=== PATIENT | female | born 1970 | race Caucasian/White ===

== ENCOUNTER → 2024-12-30 11:24 | Outpatient (REF) | payer MEDICARE, OTHER, SELFPAY | LOC: HWRAD 11:24 | PROVIDERS: ATTENDING PHYSICIAN Family Medicine | DX: R22.2 Localized swelling, mass and lump, trunk (principal) | CPT/HCPCS: 76604 ==

== ENCOUNTER 2025-03-09 21:30 | Observation (INO) | payer MEDICARE, OTHER, SELFPAY ==
[2025-03-09] VITALS (8 sets, daily range): BP systolic 110–127; BP diastolic 51–86; BMI 30.7
[2025-03-09 12:31] LABS: Hematocrit 37.1 % (37.0-47.0); Hemoglobin 12.1 g/dL (12.0-16.0); Mean Corp Hgb Conc. 32.6 g/dL (33.0-37.0); Mean Corpuscular Volume 81.5 fL (81.0-99.0); Nucleated Red Blood Cells % 0 %; Platelet Count 212 10^3/uL (130-400); Red Cell Dist. Width 13.4 % (11.5-14.5)
[2025-03-09 12:55] LABS: ALT (SGPT) 33 U/L (0-35); AST (SGOT) 31 U/L (14-36); Albumin 4.9 g/dl (3.5-5.0); Alkaline Phosphatase 74 U/L (38-126); Blood Urea Nitrogen 24 mg/dl (7-17); Calcium 9.7 mg/dl (8.4-10.2); Carbon Dioxide 21 mmol/L (22-30); Chloride 109 mmol/L (98-107); Glucose 107 mg/dl (70-99); Potassium 4.5 mmol/L (3.5-5.1); Sodium 140 mmol/L (135-145); Total Protein 7.9 g/dl (6.3-8.2); eGFR > 60.00
--- NOTE | 2025-03-09 17:01 | ED.GENMED ---
History of Present Illness
General
Chief Complaint: Headache
Source: patient and family
Exam Limitations: none
Time Seen by Provider: 03/09/25 16:41
History of Present Illness
History of Present Illness:
54-year-old female 4 to 5 days of double vision. Noted the left eye is not moving correctly. Has slowly progressed over this period of time. Some headache mildly behind the left eye associated with this. She feels this is mostly from the double
vision. No other neurologic symptoms. History of TBI. Had some eye issues shortly after the TBI requiring eye physical therapy but has been well for years. She is on disability for TBI however.
Past History
Past History
ED Past Medical History: GERD and Other (Migraines. TBI)
ED Past Surgical History: Gynecological
Social History
Tobacco: Non-smoker
Personal:
Living: with family
Review of Systems
Review of Systems
All Other Systems: Not applicable
Neurological: Denies dizzy, weakness or numbness
Phy Exam
Physical Exam
Physical Exam:
GENERAL: Alert and oriented in no apparent distress
EYE: Orbits normal.
NECK: Supple, no carotid bruit
ENT: Pharynx without erythema
CARDIAC: Regular rate and rhythm without any obvious murmurs. Sternotomy scar
LUNGS: Clear breath sounds,normal
ABDOMEN: Soft, without focal tenderness or distention
NEUROLOGICAL: Alert and oriented , speech normal. No facial droop. Gaxasc-qz-djrw normal. Good refrigeration insulator. Lower extremity strength normal. Extraocular muscles:
SKIN: Warm and dry, no rash or lesion, no discoloration, skin intact.
MUSCULOSKELETAL: No edema,no deformity.Good color
PSYCH: Normal and appropriate interaction.
Course
Orders/Labs/Results
Orders:
Orders
03/09/25 12:20
CMP [Comprehensive Metabolic Panel] Urgent
Complete Blood Count/With Diff Urgent
Erythrocyte Sed Rate Urgent
Lyme Progressive Urgent
03/09/25 17:00
CT Head & Neck Angio W/wo IV Urgent
Comment:
Reason For Exam: double vision/heaton
03/09/25 17:04
IV Insert/Care/Rem.- Treatment PRN
03/09/25 17:05
0.9% Sodium Chloride 500 ml [Nss] 500 ml IV BOLUS
03/09/25 17:09
Add On- LAB Urgent
Tests Added?: lyme progressive,esr
03/09/25 18:22
Acetaminophen [Tylenol] 650 mg PO NOW STA
Abnormal Lab Results
03/09/25
12:20
MCH 26.6 L pg
(27.0-31.0)
MCHC 32.6 L g/dL
(33.0-37.0)
MPV 10.6 H fL
(7.4-10.4)
Absolute Monos (auto) 0.9 H 10^3/uL
(0.1-0.6)
Chloride 109 H mmol/L
(98-107)
Carbon Dioxide 21 L mmol/L
(22-30)
BUN 24 H mg/dl
(7-17)
Glucose 107 H mg/dl
(70-99)
03/09/25 12:20
03/09/25 12:20
Vital Signs
Initial and Last Documented VS:
Initial Vital Signs
Temp Pulse Resp BP Pulse Ox
98.2 F 66 19 125/86 96
03/09/25 12:12 03/09/25 12:12 03/09/25 12:12 03/09/25 12:12 03/09/25 12:12
Last Documented Vital Signs
Temp Pulse Resp BP Pulse Ox
98.2 F 67 23 115/59 97
03/09/25 12:12 03/09/25 20:02 03/09/25 20:02 03/09/25 20:02 03/09/25 20:02
*Radiology
Radiology exam reviewed: radiology read reviewed (No acute vascular issue. Old cerebellar infarct. Thyroid nodule)
*Pulse Oximetry
SaO2: 96
Oxygen Mode of Delivery: Room air
Patient hypoxic: no
*Critical Care Note
Total Time (30-74mins, 75-104mins- exclusive of procedures): Not Applicable
Update Note
Update Note:
No acute vascular issue. However patient has an old cerebellar infarct on CT. This may or may not be an issue related to her previous TBI although patient and family do not know that she has had this based on her history. Given the double vision,
cerebellar infarct, patient warrants a more acute workup in the hospital.
ED Attending Note
-
Portions of this chart may have been created with voice recognition software.� Occasional wrong word or��sound alike� substitutions may have occurred due to the inherent limitations of voice recognition software.
Discharge Plan
Departure
Patient Disposition: Admit
Date of Disposition: 03/09/25
Time of Disposition: 19:11
Presentation/result/management discussed w/ accepting MD/DO: Hospitalist
Discharge Problem:
Double vision/cranial nerve palsy, Remote cerebellar infarct
Prescriptions:
No Action
clindamycin HCl 300 MG capsule
300 mg PO QID Qty: 28 0RF
hydrocodone-acetaminophen 1 TABLET tablet
1 tab PO Q4HPRN PRN (Reason: Pain) Qty: 12 0RF
Referrals:
Candelario Laws DO [Family Provider, Family Practice]
Interventions
Interventions:
*Risk Screen - Suicide Last Done: 03/09/25 12:12
*General Assessment Last Done: 03/09/25 12:12
*Neglect/Abuse Screening Last Done: 03/09/25 12:12
*ED- Fall Risk Assessment Last Done: 03/09/25 17:41
*ED COVID-19 Vaccine History Last Done: 03/09/25 17:41
ED- Neurological Assessment Last Done: 03/09/25 18:23
Discharge Date and Time
Print Language: FRENCH
[2025-03-09] MEDS: NSS 500 IV (18:15)
[2025-03-09] MEDS: TYLENOL 650 MG PO (18:31)
--- NOTE | 2025-03-09 20:01 | HPS.HSE ---
Addendum entered and electronically signed by Brian Browning DO 03/09/25 21:43:
Patient seen and examined independently. Agree with findings and plan as set forth by GUCCI Torres.
Patient is a 54y F with PMH significant for TBI who presents to ED complaining of double vision for about one week. Patient noted double vision that started while driving last week. It has persisted since - at times better / worse but never
fully resolving. She has L sided headache as well. No N/V. No numbness / tingling. No speech abnormality or focal weakness. Patient had TBI from fall about 2 years ago and is on disability as a result. No prior h/o vision changes / double
vision.
Ass:
Diplopia
h/o TBI
ASCVD
Migraine Headaches
GERD
Anxiety / Depression
Plan:
Observe overnight for further evaluation and treatment.
Evident ADDuction of L eye on exam while at rest.
Lateral movement / ABduction remains intact however.
CT with possible old R cerebellar CVA and otherwise unremarkable.
Neurology evaluation for additional recommendations.
Follow for any new / worsening symptoms.
Original Note:
Family Physician
-
Family Physician: Candelario Laws
Chief Complaint
-
double vision
History of Present Illness
Patient is a 54-year-old female with past medical history significant for depression/anxiety, hyperlipidemia, GERD, CAD, nerve pain and Hx mitral valve prolapse who presented to [facility] ED for evaluation of double vision for past 4-5 days. Patient
reports that last she noticed that she started with double vision and ten noticed that left eye had esotropia. She does report a mild consistent headache for last several days to left side behind the eye, which she reports is different than
headaches she normally experiences. Denies any dizziness or lightheadedness but admits to some unsteadiness on feet. She reports if she closes one eye the double vision is not present. It is only present when using both eyes. Denies fever, chills,
numbness, nausea or vomiting.
Medical History
Past Medical History
Past Medical History: Reports Other
Additional Past Medical History:
depression/anxiety
hyperlipidemia
GERD
CAD
nerve pain
migraines
Hx mitral valve prolapse
Hx TBI
Past Surgical History: Reports Other
Additional Past Surgical History:
Hysterectomy 07/2016
Mitral Valve Repair 03/2023
Sternotomy and thoracotomy 2022
Social History
Tobacco: Non-smoker
Alcohol: None
Drug: None
Personal:
Living: With Family
Employment: Disabled
Family History
Family History: Other (Father: Lewy Body Dementia)
Allergies / Home Medications
Allergies reflects when Allergies were last updated in [facility].
Home Medications with original date entered in [facility]
Allergy/Medication List:
Allergies
Allergy/AdvReac Type Severity Reaction Status Date / Time
Penicillins Allergy Unknown Verified 06/10/17 11:55
vancomycin Allergy Unknown Verified 06/10/17 11:55
Home Medications
aspirin 81 mg tablet,delayed release 81 mg PO DAILY 03/09/25
bupropion HCl 300 mg 24 hr tablet, extended release 300 mg PO DAILY 03/09/25
cetirizine 10 mg tablet (Zyrtec) 10 mg PO DAILY 03/09/25
escitalopram oxalate 10 mg tablet 10 mg PO HS 03/09/25
esomeprazole magnesium 20 mg capsule,delayed release 20 mg PO DAILY 03/09/25
propranolol 20 mg tablet 20 mg PO BID 03/09/25
rosuvastatin 5 mg tablet 5 mg PO HS 03/09/25
Review of Systems
-
History Source: Patient
Constitutional: Reports No Symptoms
EENT: Reports Other (binocular diplopia, left eye esotropia)
Respiratory: Reports No Symptoms
Cardiac: Reports No Symptoms
Abdomen/GI: Reports No Symptoms
: Reports No Symptoms
Musculoskeletal: Reports No Symptoms
Skin: Reports No Symptoms
Neurological: Reports No Symptoms
Endocrine: Reports No Symptoms
Hematologic/Lymphatic: Reports No Symptoms
Psych: Reports No Symptoms
Physical Exam
Vital Signs
Vital Signs
Temp Pulse Resp BP Pulse Ox
98.2 F 61 19 127/69 94
03/09/25 12:12 03/09/25 19:15 03/09/25 19:15 03/09/25 19:00 03/09/25 19:15
Physical Exam
General: Well Developed, Well Nourished, No Apparent Distress, Comfortable, Conversant and Obese
HEENT: NormoCephalic, Moist mucous membranes, Atraumatic, PERRLA and Nellie Conjunctivae
Respiratory: Clear and Non Labored Respirations
Cardiac: S1/S2 and Regular Rhythm; No Murmur, Rub or Gallop
GI: Soft, Non Tender, Non Distended and Normal Bowel Sounds; No Organomegaly
Rectal: Deferred by Provider
Musculoskeletal: No Clubbing, No Cyanosis and No Edema
Skin: Warm and IV/Catheter Site
Neuro: Awake, AO x 3, No Motor Deficits, Nonfocal/grossly intact and No Sensory Deficits; No Facial Droop
Psych: Calm and Intact Judgment/Insight
Laboratory Results
-
03/09/25 12:20
03/09/25 12:20
Laboratory Results
Total Bilirubin 0.8 mg/dl (0.2-1.3) 03/09/25 12:20
AST 31 U/L (14-36) 03/09/25 12:20
ALT 33 U/L (0-35) 03/09/25 12:20
Alkaline Phosphatase 74 U/L (38-126) 03/09/25 12:20
Data Reviewed
-
CT Scan: Report Reviewed by me (King CTA: No acute intracranial abnormality. 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 No CTA evidence for high-grade stenosis or occlusion of the [place] or the arterial vasculature of the neck.
Thyroid gland nodularity for which a follow-up thyroid ultrasound is recommended on)
Lab Data: Labs Reviewed by me
Impression/Plan
-
IMPRESSION/PLAN:
#double vision
Head/Neck CTA: No acute intracranial abnormality.
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
No CTA evidence for high-grade stenosis or occlusion of the [place] or the arterial vasculature of the neck.
Thyroid gland nodularity for which a follow-up thyroid ultrasound is recommended on a routine outpatient basis.
- Admit to med/surg
- Consult Neurology
- check thiamine
#depression/anxiety
- continue escitalopram and Wellbutrin
#hyperlipidemia
- continue rosuvastatin
#GERD
- continue esomeprazole
#migraines
- continue Inderal
#CAD
- continue aspirin
#Hx mitral valve prolapse
s/p mitral valve repair
#Hx TBI
#nerve pain
Code status: full code
DVT prophylaxis: Lovenox
[2025-03-10] MEDS: LEXAPRO 10 MG PO (00:03)
[2025-03-10] MEDS: INDERAL 20 MG PO ×2 (00:03→09:45)
[2025-03-10] MEDS: CRESTOR 5 MG PO (00:03)
[2025-03-10 00:04] VITALS: BP 121/68
[2025-03-10] MEDS: PROTONIX 40 MG PO (08:11)
[2025-03-10] MEDS: ASPIR LOW (ENTERIC COATED) 81 MG PO (08:11)
[2025-03-10] MEDS: VITAMIN B1 100 MG PO (08:11)
[2025-03-10] MEDS: ZYRTEC 10 MG PO (08:12)
[2025-03-10 08:15] VITALS: BP 102/66
--- NOTE | 2025-03-10 08:19 | CON.NEURO ---
Addendum entered and electronically signed by Kamron Rios MD 03/10/25 10:29:
Studies reviewed.
I have personally examined the patient. I reviewed and agree with the ELECTRON[employer] DETAIL DRAFTSPERSON's Note.
My addenda:
Awake, alert, interactive. No acute distress.
Speech intact.
Follows 2-step requests w/o difficulty. No tremor.
Extra-ocular movements grossly intact.
Facial movements full and symmetric. Hearing intact to normal conversational volume.
Normal UE movements bilaterally.
Neck: full ROM.
Chest: no dyspnea
Heart: no JVD
Ext: (-) Clubbing, (-) Cyanosis, (-) Edema
IMPRESSIONS/RECOMMENDATIONS:
Abrupt onset of diplopia with chronic daily headache in a patient with self-reported traumatic brain injury
Most likely due to convergence breakdown of prior esotropia. Differential diagnosis includes acute ischemic stroke, demyelinating disease.
Check MRI of brain
Patient should meet with usual neuro-sugar refiner for ocular retraining
Check blood work for potential metabolic causes producing symptoms
Continue aspirin due to prior history of CABG as well as right lacunar cerebellar lesion which is chronic
As outpatient, patient will need additional therapies to remediate chronic daily headache
Occupational therapy
D/W patient / family
All questions answered.
Will continue to follow pending results.
Original Note:
Documented by User: Shania Rain NP 03/10/25 09:50
Neuro Assessment/Plan
Assessment
Patient is a 54-year-old right-handed female with past medical history significant for depression/anxiety, hyperlipidemia, GERD, CAD, nerve pain, TBI, mitral valve prolapse who presented to [facility] ED on 03/09/2025 for evaluation of double vision for
past 4-5 days.
Head and neck CTA:
No acute intracranial abnormality.
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
No CTA evidence for high-grade stenosis or occlusion of the [place] or the arterial vasculature of the neck.
Thyroid gland nodularity for which a follow-up thyroid ultrasound is recommended on a routine outpatient basis.
Brain MRI: pending
Plan
Impressions: abrupt onset of diplopia and headache most likely due to reoccurrence of her esotropia vs CVA
-follow up with neuro sugar refiner outpatient
-obtain brain MRI to rule out new stroke
-continue aspirin 81 mg daily
-check LDL with goal <70, continue statin therapy
-OT evaluation
All questions encouraged and answered, plan of care discussed with Dr. Rios, patient and family
Consultation
Order
Date of Consultation: 03/10/25
Requesting Provider: hospitalist
Reason for Consult: binocular diplopia and headache
Subjective/Objective
Subjective Data
Date of Service: March 10, 2025
Patient is a 54-year-old right-handed female with past medical history significant for depression/anxiety, hyperlipidemia, GERD, CAD, nerve pain, TBI, mitral valve prolapse who presented to [facility] ED on 03/09/2025 for evaluation of double vision for
past 4-5 days. Patient reports that last she noticed that she started with double vision and noticed that left eye had esotropia around 10-11am [facility]. She does report a mild consistent headache for last
several days to left side behind the eye, which she reports is different than headaches she normally experiences. Has more of a feeling of numbness and weakness. Pain is 2/10 which has been since her accident. Stress and eye strain makes it worse,
rest improves her headaches. She states she has headaches intermittently once or twice a day every day and takes Inderal for her migraines as preventative therapy. She used to see a neurologist for her migraines, Dr. Jason Blancas but he retired and
has not seen a neurologist since. Denies any dizziness or lightheadedness. She reports if she closes her left eye the double vision is not present. It is only present when using both eyes. Denies fever, chills, numbness, nausea or vomiting. Denies
weakness, numbness or tingling in upper or lower extremities. Denies issues with chewing or swallowing. Denies issues with speech. Denies issues with bowel/bladder. Denies recent trauma. Of note, she has been taking aspirin 81 mg prior to admission
for his cardiac surgery history. Has history of TBI and has had vestibular therapy, vision therapy and speech therapy in the past which seemed to have improved her symptoms.
Objective Data
Vital Signs
Temp Pulse Resp BP Pulse Ox
98.4 F 61 18 102/66 99
03/10/25 08:15 03/10/25 08:15 03/10/25 08:15 03/10/25 08:15 03/10/25 00:04
Lab Results
03/09/25 12:20
03/09/25 12:20
Sodium 140 mmol/L (135-145) 03/09/25 12:20
Potassium 4.5 mmol/L (3.5-5.1) 03/09/25 12:20
BUN 24 mg/dl (7-17) H 03/09/25 12:20
Glucose 107 mg/dl (70-99) H 03/09/25 12:20
Calcium 9.7 mg/dl (8.4-10.2) 03/09/25 12:20
Patient Allergies
Penicillins Allergy (Verified 06/10/17 11:55)
Unknown
vancomycin Allergy (Verified 06/10/17 11:55)
Unknown
CVA Assessment
Onset of Stroke Symptoms
Onset of symptoms known: Yes
Date of onset of symptoms: 03/05/25
Time of onset of symptoms: 10:00
Time pt last seen normal is known: Yes
Date last time pt seen normal: 03/05/25
Time last time pt seen normal: 10:00
NIH Stroke Score
Level of Consciousness: 0 - Alert
LOC Questions: 0-Answers both correctly
LOC Commands: 0-Performs both correctly
Best Horizontal Gaze: 1-Partial gaze palsy
Visual Hardin: 0=Normal, no visual loss
Facial Palsy: 0=Normal, symmetrical
Motor - Right Arm: 0=No drift 10 seconds
Motor - Left Arm: 0=No drift 10 seconds
Motor - Right Le-No drift 5 seconds
Motor - Left Le-No drift 5 seconds
Limb Ataxia: 0-Absent
Sensation: 0-Normal
Best Language: 0-No aphasia
Dysarthria: 0-Normal
Extinction and Inattention: 0-No abnormality
NIH Total Score:: 1
Tenecteplase Contraindications
Inclusion and Exclusion criteria reviewed: Yes
Reasons for NON-Tx with Thrombolytics ABSOLUTE Exclusions: Time-out of window
IAT Contraindications: >6 hrs from onset/last seen normal and NIHSS < 6
Modified [place] Score (MRS)
-
Modified [place] Scale (mRS): No significant disability. Able to carry out usual activities.
Score: 1
Review of Systems
-
History Source: Patient
Constitutional: No Symptoms
EENT: Other (diplopia)
Respiratory: No Symptoms
Cardiac: No Symptoms
Abdomen/GI: No Symptoms
Genitourinary: No Symptoms
Musculoskeletal: No Symptoms
Skin: No Symptoms
Neuro: No Symptoms
Endocrine: No Symptoms
Hematologic / Lymphatic: No Symptoms
Physical Exam
-
General: No Apparent Distress and Comfortable
HEENT: Normocephalic, Atraumatic and Anicteric
Neck: Full Range of Motion
Respiratory: No Dyspnea
Cardiac: No JVD
GI: Non-distended
Skin: Unremarkable
Extremities: No Clubbing, No Cyanosis and No Edema
Psych: Unremarkable
Extended Neurological Exam
Mood & Affect: Mood Unremarkable
Attention Span & Concentration: Awake, Alert, Interactive and No Difficulty with 2 Step Request
Memory: Unremarkable
Tremor: Hand Tremor Absent and Head Tremor Absent
Speech: Pressured
Cranial Nerve II: Left Eye: Visual Hardin Grossly Intact
Cranial Nerve II: Right Eye: Visual Hardin Grossly Intact
Cranial Nerves III, IV, : Extraocular Movement: Other (left esotropia)
Cranial Nerves IX, X: Palate Movement: Palate Elevation Symmetric
Cranial Nerve XI: Shoulder Shrug: Unremarkable
Muscle Strength, Overall: Full Throughout
Pronator Drift: No Drift in Upper Extremities and No Drift in Lower Extremities
Deep Tendon Reflexes: Unremarkable Throughout
Coordination: [id number] Testing Unremarkable and Reaches for Objects without Difficulty
Data Reviewed
-
CT-A: Report Reviewed and Image Reviewed
CT Head: Report Reviewed and Image Reviewed
MRI Head: Ordered
Labs: Report Reviewed
Reviewed with: Physician, Patient and Family
Old Records: Summarized
Medications
-
Active Medications
Generic Name Dose Route Start Last Admin
Trade Name Freq PRN Reason Stop Dose Admin
Aspirin 81 mg 03/10/25 08:00 03/10/25 08:11
Aspirin 81 Mg (Enteric Coated) Tablet PO 04/07/25 07:59 81 mg
DAILY ROCÍO Administration
Bupropion HCl 300 mg 03/10/25 08:00
Bupropion (24hr) Extended Release 300 Mg Tablet PO 04/07/25 07:59
DAILY ROCÍO
Cetirizine HCl 10 mg 03/10/25 08:00 03/10/25 08:12
Cetirizine Hcl 10 Mg Tablet PO 04/07/25 07:59 10 mg
DAILY ROCÍO Administration
Enoxaparin Sodium 40 mg 03/10/25 18:00
Enoxaparin Sodium 40 Mg/0.4 Ml Syringe SC 04/07/25 17:59
QPM ROCÍO
Escitalopram Oxalate 10 mg 03/09/25 22:46 03/10/25 00:03
Escitalopram 10 Mg Tablet PO 04/06/25 22:45 10 mg
HS ROCÍO Administration
Pantoprazole Sodium 40 mg 03/10/25 08:00 03/10/25 08:11
Pantoprazole 40 Mg Delayed Release Tablet PO 04/07/25 07:59 40 mg
DAILY ROCÍO Administration
Propranolol HCl 20 mg 03/09/25 22:46 03/10/25 00:03
Propranolol 20 Mg Regular Release Tablet PO 04/06/25 22:45 20 mg
BID ROCÍO Administration
Rosuvastatin Calcium 5 mg 03/09/25 22:46 03/10/25 00:03
Rosuvastatin (Crestor) 5 Mg Tablet PO 04/06/25 22:45 5 mg
HS ROCÍO Administration
Sodium Chloride 0 flush 03/09/25 23:00
Sodium Chloride 0.9% (Flush) Syringe IV 04/06/25 22:59
PER PROTOCOL ROCÍO
Thiamine HCl 100 mg 03/10/25 08:00 03/10/25 08:11
Thiamine 100 Mg Tablet PO 04/07/25 07:59 100 mg
DAILY ROCÍO Administration
Home Medications
�Medication �Instructions �Recorded
aspirin 81 mg tablet,delayed 81 mg PO DAILY 03/09/25
release
bupropion HCl 300 mg 24 hr tablet, 300 mg PO DAILY 03/09/25
extended release
cetirizine 10 mg tablet (Zyrtec) 10 mg PO DAILY 03/09/25
escitalopram oxalate 10 mg tablet 10 mg PO HS 03/09/25
esomeprazole magnesium 20 mg 20 mg PO DAILY 03/09/25
capsule,delayed release
propranolol 20 mg tablet 20 mg PO BID 03/09/25
rosuvastatin 5 mg tablet 5 mg PO HS 03/09/25
Past History
Past History
ED Past Medical History: GERD and Other (Migraines. TBI)
ED Past Surgical History: Gynecological
Family/Social History
Tobacco: Non-smoker
Personal:
Living: with family

Documented by User: Kamron Rois MD 03/10/25 10:25
CVA Assessment
NIH Stroke Score
NIH Total Score:: 1
Modified [place] Score (MRS)
-
Score: 1
[2025-03-10] MEDS: WELLBUTRIN XL (24 hour extended release) 300 MG PO (09:45)
[2025-03-10 10:35] LABS: HDL Cholesterol 48 mg/dl; LDL Cholesterol, Calculated 81 mg/dl; Very Low Density Lipoprotein 43 mg/dl (0-30)
--- NOTE | 2025-03-10 10:42 | CM ---
CM reviewed chart and met with pt bedside in ED. Lives with in 1 story home, 2-3 [place]UV[place].
Independent in ADLs, personal care and ambulation at baseline. No assistive devices, no DME.
Confirms prescription coverage.
Hx VN [facility] after heart surgery, no hx SNF
PCP: Candelario Laws
Pharmacy: [facility]
CM will continue to follow for all discharge planning needs.
[2025-03-10 11:43] LABS: Folate 10.1 ng/ml (2.76-20); Vitamin B12 514 pg/ml (239-931)
[2025-03-10 14:50] VITALS: BP 105/50
[2025-03-10 16:10] VITALS: BP 133/74; BMI 29.9
--- NOTE | 2025-03-10 16:14 | PTCARENOTE ---
pt arrived to floor via w/c. reports left side headache and double vision unchanged.has left eye esotropia. denies complaints, independent, vss, will continue to monitor.
--- NOTE | 2025-03-10 17:22 | W.PN.HOSP.TC ---
Addendum entered and electronically signed by Gagan Kebede MD 03/10/25 23:27:
Attending Addendum-
I saw and evaluated the patient. I reviewed the resident�s note and agree with findings and plan as documented in the resident�s note. Sub: continues to have diplopia. no new neuro sxs. Seen woth present. no DURANT. Full 12 point ROS reviewed
and negative except as documented Exam: Vitals reviewed in chart GEN-NAd heart RRR HEEN PEERLA, esotropia heart RRR lungs clear abd soft LE no edema
Plan:
#Diplopia-Binocular
-Head/Neck CTA: No acute intracranial abnormality.
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
No CTA evidence for high-grade stenosis or occlusion of the [place] or the arterial vasculature of the neck.
Thyroid gland nodularity for which a follow-up thyroid ultrasound is recommended on a routine outpatient basis.
- Neurology input appreciated
- MRI 03/10-No acute intracranial abnormality noted.
Prior lacunar infarction of the right cerebellar hemisphere.
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
- f/u neuroptho appt on 04/03- appt made
#depression/anxiety
- continue escitalopram and Wellbutrin
#hyperlipidemia
- continue rosuvastatin
#GERD
- continue esomeprazole
#migraines
- continue Inderal
#CAD
- continue aspirin
#Hx mitral valve prolapse
s/p mitral valve repair
#Hx TBI
Code status: full code
DVT prophylaxis: Lovenox
Time spent coordinating care, DC planning, review of DC plan of care with resident, transition of care, review of records, med rec/scripts sent electronically, consults, notes, d/w consultants, nursing, family, and CM� 33 mins >50% of this time was
devoted to counseling and coordination of care
Original Note:
Today's Communication/Plan
-
For discharge home and follow up out patient with Neuro-Ophtalmology, Neurology and PCP
Assessment / Plan
Assessment / Plan
Diplopia-
-Neurology consulted- Diplopia likely due to recurrence of estropia
-Brain MRI done, no no hyperacute, acute, or early subacute infarction
-Head/Neck CTA: No CTA evidence for high-grade stenosis or occlusion of the [place] or the arterial vasculature of the neck.
-Pending MRSA KECIA and Lyme serology
-To be dischared today and follow up out patient with Neuro-Ophthalmology, Neurology and PCP
Hx TBI
- Nerve pain
Thyroid mass
-Normal TSH, stable
-Continue regular follow-up with PCP
Depression/anxiety
- continue escitalopram and Wellbutrin
Hyperlipidemia
- continue rosuvastatin
GERD
- continue esomeprazole
Migraines
- continue Inderal
CAD
- continue aspirin
Hx mitral valve prolapse
s/p mitral valve repair
Code status: full code
DVT prophylaxis: Lovenox
Anticipated Discharge: Today
Subjective/Interval History
-
Date of Service: March 10, 2025
Patient seen. Complains of Diplopia
Has occasional headaches not currently present
No change in vision and no neurological deficit
Objective Data
-
Labs:
Triglyceride 217H, VLDL 43H,
Pending KECIA and B1
Vital Signs:
Vital Signs
Temp Pulse Resp BP Pulse Ox
98.3 F 65 16 133/74 97
03/10/25 16:10 03/10/25 16:10 03/10/25 16:10 03/10/25 16:10 03/10/25 16:10
Review of Systems
-
History Source: Patient
Constitutional: Reports No Symptoms
EENT: Reports No Symptoms Reported
Respiratory: Reports No Symptoms
Cardiac: Reports No Symptoms
Abdomen/GI: Reports No Symptoms
Musculoskeletal: Reports No Symptoms
Skin: Reports No Symptoms
Neuro: Reports No Symptoms
Endocrine: Reports No Symptoms
Physical Exam
-
General: Well Developed
HEENT: Normocephalic, [place] Conjunctivae, No Ptosis, PERRLA (Lateral deviation of the left eye at rest. However, moves simultaneously with the right eye. Vision field is full. ) and Thyromegaly
Respiratory: Clear to Auscultation
Cardiac: Regular Rhythm and S1/S2
Neuro: Awake, Alert, Oriented and Nonfocal/Grossly Intact
Psych: Calm
Data Reviewed
-
Labs: Labs Reviewed by me, Discussed with Physician and Discussed with Patient
--- NOTE | 2025-03-11 00:27 | W.DCSUMMARY ---
Addendum entered and electronically signed by Gagan Kebede MD 03/11/25 23:36:
Read, reviewed, and agree. See same day progress note for additional details.
Marlo Keebde MD
Original Note:
Documented by User: Daija Cohen MD, Resident 03/11/25 01:33
Discharge Summary
Discharge Data
Date of Admission: 03/09/25
Date of Discharge: 03/10/25
-
Pending Results: Yes (MRSA KECIA and Lyme serology)
Hospital Course
Discharging Physician : Daija Cohen MD; Gagan Kebede MD
Disposition : Home
Primary care physician : Candelario Laws
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
Chronic Discharge diagnosis :
History of TBI
Thyroid mass
Depression/anxiety
Hyperlipidemia
GERD
Migraines
CAD
History of mitral valve prolapse
Hospital Course :
54-year-old female with PMH of TBI who presented to [facility] ED on 03/09/2025 complaining of 1 week history of sudden onset of double vision which has been persistent with varied degree of severity associated left-sided headaches.
While in the ED left eye esotropia was noted
Patient was evaluated with a CT angio of head and neck W/Wo IV contrast which showed no acute vascular injury but positive for old cerebellar infarcts. Patient was evaluated by neurology. MRI of the brain reported prior lacunar infarction,
hemorrhage with small vessel ischemic. Patient's lab was also significant for hyperlipidemia with TG 217.
Symptoms where suspected to be due to convergence breakdown of estropia.
Differential for Ischemic and metabolic causes.
She was advised to follow up with Neuro-Ophtalmology on out patient basis for ocular retraining and OT
Thyroid nodularity noted on Imaging is chronic and TSH within normal limit, patient is advised to continue outpatient monitoring of thyroid function.
Important imaging findings :
CTA Head and neck 03/09/2025
No acute intracranial abnormality.
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
No CTA evidence for high-grade stenosis or occlusion of the [place] or the arterial vasculature of the neck.
Thyroid gland nodularity for which a follow-up thyroid ultrasound is recommended on a routine outpatient basis.
Procedure findings :
Brain MRI 03/10/2025:
IMPRESSION:
No acute intracranial abnormality noted.
Prior lacunar infarction of the right cerebellar hemisphere.
There are trace scattered T2/FLAIR white matter hyperintensities which are nonspecific although possibly sequelae of trace chronic small vessel ischemic disease.
Discharge Plan
-
Patient Disposition: Home (Routine Discharge)
Discharge Diagnosis/Procedures: Diplopia
Condition: Fair
Diet: No restrictions
Activity: No restrictions
Driving Restrictions: Not until seen by your Dr
Bathing Restrictions: None
Instructions: Double Vision (DC)
Referrals:
Inderjit Pickett MD [Non-Admitting Privileges, Ophthalmology]
Kamron Rios MD [Active, Neurology]
Candelario Laws DO [Family Provider, Family Practice] - in less than 1 week
Additional Discharge Medication Instructions: Please follow-up with your neuro-wraparound facilitator outpatient.
If you develop any new or worrisome systems please return to the emergency department.
Please avoid driving until you see your doctor.
You can continue the home medications
Prescriptions:
Continued
cetirizine [Zyrtec] 10 mg Tablet
10 mg PO DAILY
aspirin 81 mg Tablet,Delayed Release (Dr/Ec)
81 mg PO DAILY
propranolol 20 mg Tablet
20 mg PO BID
esomeprazole magnesium 20 mg Capsule,Delayed Release(Dr/Ec)
20 mg PO DAILY
escitalopram oxalate 10 mg Tablet
10 mg PO HS
rosuvastatin 5 mg Tablet
5 mg PO HS
bupropion HCl 300 mg Tablet Extended Release 24 Hr
300 mg PO DAILY
Discharge Orders:
Discharge Patient (As Directed); Ordered 03/10/25
Ordered By: Daija Cohen
Discharge Date and Time
Discharge Date/Time: 03/10/25 18:45
Print Language: AFGHAN

Documented by User: Gagan Kebede MD 03/11/25 23:36
Discharge Summary
Discharge Data
Date of Admission: 03/09/25
Date of Discharge: 03/11/25
Discharge Plan
-
Patient Disposition: Home (Routine Discharge)
Discharge Diagnosis/Procedures: Diplopia
Condition: Fair
Diet: No restrictions
Activity: No restrictions
Driving Restrictions: Not until seen by your Dr
Bathing Restrictions: None
Instructions: Double Vision (DC)
Referrals:
Inderjit Pickett MD [Non-Admitting Privileges, Ophthalmology]
Kamron iRos MD [Active, Neurology]
Candelario Laws DO [Family Provider, [facility]] - in less than 1 week
Additional Discharge Medication Instructions: Please follow-up with your neuro-wraparound facilitator outpatient.
If you develop any new or worrisome systems please return to the emergency department.
Please avoid driving until you see your doctor.
You can continue the home medications
Prescriptions:
Continued
cetirizine [Zyrtec] 10 mg Tablet
10 mg PO DAILY
aspirin 81 mg Tablet,Delayed Release (Dr/Ec)
81 mg PO DAILY
propranolol 20 mg Tablet
20 mg PO BID
esomeprazole magnesium 20 mg Capsule,Delayed Release(Dr/Ec)
20 mg PO DAILY
escitalopram oxalate 10 mg Tablet
10 mg PO HS
rosuvastatin 5 mg Tablet
5 mg PO HS
bupropion HCl 300 mg Tablet Extended Release 24 Hr
300 mg PO DAILY
Discharge Orders:
Discharge Patient (As Directed); Ordered 03/10/25
Ordered By: Daija Cohen
Discharge Date and Time
Discharge Date/Time: 03/10/25 18:45
Print Language: AFGHAN
[2025-03-12 02:20] LABS: ANA, IgG Reflex to HEp-2 None Detected (None Detected)
[2025-03-12 11:09] LABS: Vitamin B1, Whole Blood 120 nmol/L (70-180)
[2025-03-12 14:16] LABS: Lyme Antibody Screen, EIA Negative (Negative)
== END 2025-03-10 18:45 | disposition home or self-care (01) ==
LOC: 3 WEST ACU 21:30
PROVIDERS: Nurse Practitioner Family; Student in an Organized Health Care Education/Training Program; ADMITTING PHYSICIAN Hospitalist; ATTENDING PHYSICIAN Family Medicine; CONSULT PHYSICIAN Psychiatry & Neurology Neurology; EMERGENCY PHYSICIAN Emergency Medicine; FAMILY PHYSICIAN Family Medicine
DX: H53.2 Diplopia (principal); H50.012 Monocular esotropia, left eye; I25.10 Atherosclerotic heart disease of native coronary artery without angina pectoris; G43.909 Migraine, unspecified, not intractable, without status migrainosus; K21.9 Gastro-esophageal reflux disease without esophagitis; F41.9 Anxiety disorder, unspecified; F32.A Depression, unspecified; E78.5 Hyperlipidemia, unspecified; E07.9 Disorder of thyroid, unspecified; I05.8 Other rheumatic mitral valve diseases; Z79.899 Other long term (current) drug therapy; Z87.820 Personal history of traumatic brain injury
CPT/HCPCS: 70496; 70498; 70551; 80053; 80061; 82607; 82746; 84425; 84443; 85025; 85652; 86038; 86618; 87070; 96360; 99285; G0378; Q9967

== ENCOUNTER 2025-05-15 05:53 | Day surgery (SDC) | payer MEDICARE, OTHER, SELFPAY ==
[2025-05-15] VITALS (9 sets, daily range): BP systolic 14–124; BP diastolic 41–67; BMI 28.3
[2025-05-15] MEDS: TYLENOL 1000 MG PO (06:39)
[2025-05-15] MEDS: NORMOSOL-R/PLASMALYTE-A 1000 IV (06:40)
--- NOTE | 2025-05-15 06:45 | W.SUR.PREOP ---
Pre-Operative Surgical Note
-
I have examined this patient prior to the performance of the scheduled procedure.
The patient's condition is unchanged from the time of the current History and
Physical and the patient is able to undergo the scheduled procedure.
--- NOTE | 2025-05-15 08:09 | W.IMMPOSTOP ---
Addendum entered and electronically signed by Oliver Lemus MD 05/15/25 08:15:
#[id number]
Original Note:
Surgical Immed Post Op Note
-
Primary Surgeon: Oliver Lemus MD
Assisting Surgeon: Joon Hawkins
Pre-op Diagnosis: Subcutaneous lipoma on the back
Post-op Diagnosis: Subcutaneous lipoma on the back; 11 cm
Procedure Performed: Excision subcutaneous lipoma; 11 cm
Anesthesia Type: MAC +1% lidocaine/0.25% Marcaine with epinephrine
Specimen / Cultures: Subcutaneous lipoma
Estimated Blood Loss: 8 mL
Complications: None immediate
Operative Findings: Well encapsulated subcutaneous lipoma just deep to Lonnie's fascia but not within muscle. Excised in entirety. Deep subcutaneous tissues approximated with 2-0 Vicryl. Lonnie's layer closed with 2-0 Vicryl. Skin closed with
4-0 Monocryl subcuticular.
== END 2025-05-15 10:49 | disposition home or self-care (01) ==
LOC: SDS 05:53
PROVIDERS: ATTENDING PHYSICIAN Surgery
DX: D17.1 Benign lipomatous neoplasm of skin and subcutaneous tissue of trunk (principal)
CPT/HCPCS: 21931; 87070; 88304